=== PATIENT | male | born 1950 | race Caucasian/White ===

== ENCOUNTER 2017-01-05 21:30 | Inpatient (IN) | payer OTHER ==
[~2017-01-05] VITALS: Ht 188 cm; Wt 95.3 kg
[~2017-01-05 21:30] MED LIST: GLIPIZIDE ER2.5 MG PO; IBU600 MG PO; METFORMIN HCL500 MG PO; PROZAC10 MG PO; VASOTEC20 MG PO; XANAX0.5 MG PO
--- NOTE | 2017-01-05 21:50 | ED GI/GU/ABDOMINAL COMPLAINT ---
History of Present Illness General Chief Complaint: Abdominal Pain/Flank Pain Stated Complaint: RT SIDE ABDOMINAL PAIN Source: patient, family, old records Exam Limitations: no limitations Vital Signs & Intake/Output Vital Signs & Intake/Output Vital Signs Date Time Temp Pulse Resp B/P Pulse O2 O2 Flow FiO2 Ox Delivery Rate 01/06 2224 Room Air 01/05 2154 98.9 93 18 150/87 97 Room Air ED Intake and Output 01/06 0000 01/05 1200 Intake Total 1000 Output Total Balance 1000 Intake, IV 1000 Patient 216 lb Weight Allergies Coded Allergies: NO KNOWN ALLERGIES (01/05/17) Reconcile Medications Alprazolam (Xanax) 0.5 MG TABLET 1 TAB PO BID ANXIETY (Reported) Enalapril Maleate (Vasotec) 20 MG TAB 1 TAB PO BID HTN (Reported) FLUOXETINE HCL (Prozac) 10 MG CAPSULE 1 TAB PO D ANXIETY (Reported) Glipizide (Glipizide ER) 2.5 MG TAB.ER.24 1 TAB PO BID NIDDM (Reported) Ibuprofen (Ibu) 600 MG TAB 1 TAB PO TID PRN PAIN Metformin Hydrochloride (Metformin HCl) 500 MG TAB 2 TAB PO BID NIDDM ( Reported) Triage Nurses Notes Reviewed? yes HPI: This morning patient had diffuse crampy abdominal pain but this afternoon it settled into his right lower quadrant. The pain is constant. The pain increases with movement or bumps in the road. There is no nausea or vomiting. There is no radiation of pain. Patient rates the pain as 8 out of 10. There is no obstipation or diarrhea. There is no hematuria. No dysuria. Past History Travel History Traveled to [place] past 21 day No Medical History Any Pertinent Medical History? see below for history Cardiovascular: hypertension Psychiatric: depression Endocrine: diabetes Surgical History Surgical History: non-contributory Psychosocial History What is your primary language Frisian Tobacco Use: Quit >30 days ago ETOH Use: occasional use Illicit Drug Use: denies illicit drug use Family History Hx Contributory? No Review of Systems Review of Systems Constitutional: Reports: no symptoms. EENTM: Reports: no symptoms. Respiratory: Reports: no symptoms. Cardiovascular: Reports: no symptoms. GI: Reports: see HPI, abdominal pain. Genitourinary: Reports: no symptoms. Musculoskeletal: Reports: no symptoms. Skin: Reports: no symptoms. Neurological/Psychological: Reports: no symptoms. Hematologic/Endocrine: Reports: no symptoms. Immunologic/Allergic: Reports: no symptoms. All Other Systems: Reviewed and Negative Physical Exam Physical Exam General Appearance: well developed/nourished, alert, awake Head: atraumatic, normal appearance Eyes: Bilateral: PERRL, EOMI. Ears, Nose, Throat, Mouth: hearing grossly normal, DRY MUCUS MEMBRANES Neck: normal inspection, supple, full range of motion Respiratory: normal breath sounds, chest non-tender, no respiratory distress, lungs clear Cardiovascular: regular rate/rhythm, normal peripheral pulses Gastrointestinal: normal bowel sounds, soft, no organomegaly, RLQ TENDERNESS WITH GUARDING AND REBOUND Back: normal inspection, normal range of motion Extremities: normal range of motion Neurologic/Psych: no motor/sensory deficits, awake, alert, oriented x 3, normal mood/affect Skin: intact, normal color, warm/dry Core Measures ACS in differential dx? Yes ASA ordered for poss ACS? No-ACS ruled out Severe Sepsis Present: No Septic Shock Present: No Progress Differential Diagnosis: AMI, appendicitis, bowel obstruction, colon cancer, cholecystitis, diverticulitis, gastritis, hepatitis, ischemic bowel, inflamm bowel dis, ureterolithiasis Plan of Care: Orders Procedure Date/time Status Place in observation 01/052 Active URINALYSIS 01/06 2140 Active TROPONIN LEVEL 01/06 2140 Complete LIPASE 01/06 2140 Complete COMPREHENSIVE METABOLIC PANEL 01/06 2140 Complete CBC WITHOUT DIFFERENTIAL 01/06 2140 Complete AMYLASE 01/06 2140 Complete EKG 01/05 2131 Active Laboratory Tests 01/05/17 2151: Anion Gap 13, Estimated GFR > 60, BUN/Creatinine Ratio 16.7, Glucose 197 H, Calcium 9.6, Total Bilirubin 1.6 H, AST 32, ALT 68, Alkaline Phosphatase 54, Troponin I < 0.01, Total Protein 7.5, Albumin 4.4, Globulin 3.1, Albumin/ Globulin Ratio 1.4, Amylase 62, Lipase 120, CBC w Diff MAN DIFF ORDERED, RBC 5.21, MCV 89.2, MCH 30.5, RDW 12.9, MPV 7.3 L, Gran % 85.2 H, Lymphocytes % 7.1 L, Monocytes % 7.5, Eosinophils % 0.1, Basophils % 0.1, Absolute Granulocytes 14.7 H, Absolute Lymphocytes 1.2, Absolute Monocytes 1.3 H, Absolute Eosinophils 0, Absolute Basophils 0, Platelet Estimate ADEQUATE, Normocytic RBCs VERIFIED, Normochromic RBCs VERIFIED, PUBS MCHC 34.2 Diagnostic Imaging: Viewed by Me: CT Scan. Discussed w/RAD: CT Scan. Radiology Impression: PATIENT: CAITIE ROJAS PRESENT AGE: 66 PATIENT ACCOUNT NO: [id number] : 48 LOCATION: [facility] ORDERING PHYSICIAN: VALERY OLIVO MD SERVICE DATE: 01/05/17 EXAM TYPE: CAT - CT ABD & PELVIS W IV CONTRAST EXAMINATION: CT ABDOMEN AND PELVIS WITH CONTRAST CLINICAL INFORMATION: Right lower quadrant abdominal pain. Question appendicitis. COMPARISON: No relevant prior imaging available. TECHNIQUE: Multidetector volumetric imaging was performed of the abdomen and pelvis before and after the IV administration of 95 mL of Optiray 320 intravenous contrast. Sagittal and coronal reformatted images were obtained on the technologist's workstation. DLP: 478.57 mGy-cm FINDINGS: LUNG BASES: There is minimal bibasilar subsegmental atelectasis. No pleural or pericardial effusion. LIVER, GALLBLADDER, AND BILIARY TREE: The liver is normal in size, shape, and attenuation. No focal hepatic lesion is present. There is a small calculus layering within the gallbladder neck. The gallbladder is otherwise normal. No intrahepatic or extrahepatic biliary ductal dilatation. PANCREAS: Unremarkable. SPLEEN: Unremarkable. ADRENAL GLANDS: Unremarkable. KIDNEYS AND URETERS: The kidneys are normal in size, shape, and attenuation. No hydronephrosis, hydroureter, or calculi seen. No perinephric stranding. BLADDER: Unremarkable. GASTROINTESTINAL TRACT: There is extensive retroperitoneal inflammation surrounding an abnormal thickened and relatively indistinguishable appendix. There appears be a large appendicolith near the base of the cecum. There is extraluminal air and fluid adjacent to the appendix consistent with perforation. Reactive inflammatory changes are visualized within the adjacent cecum. A few diverticula are visualized within the distal descending and sigmoid colon. The colon is otherwise unremarkable. Small bowel and stomach are normal. ABDOMINAL WALL: No significant hernia is appreciated. LYMPH NODES: There are no pathologically enlarged mesenteric or retroperitoneal lymph nodes. VASCULAR: Scattered atheromatous calcification is visualized within the abdominal aorta and iliac vessels. The inferior vena cava is unremarkable. PELVIC VISCERA: The prostate gland is enlarged with a transverse diameter of 6 cm. No abnormal perirectal or presacral inflammation. OSSEOUS STRUCTURES: There is asymmetric degenerative narrowing of the right hip. No acute fracture. No worrisome lytic or blastic osseous lesions. There are prominent degenerative disc osteophytes causing indentation of the ventral thecal sac at the levels of L2-L3 and L3-L4. IMPRESSION: Perforated acute appendicitis with a small collection containing air and fluid within the right lower quadrant. Extensive retroperitoneal inflammatory changes. DICTATED BY: TEENA GARCIA MD DATE/TIME DICTATED:2330 INSPECTOR FLOOR SUB ASSEMBLY:GINETTE DATE/TIME TRANSCRIBED:01/05/172330 CONFIDENTIAL, DO NOT COPY WITHOUT APPROPRIATE AUTHORIZATION. <Electronically signed in Other Vendor System> SIGNED BY: TEENA GARCIA MD 01/05/17 3133 Initial ED EKG: SINUS RHYTHM WITH POOR r-WAVE PROGRESSION AND FIRST-DEGREE HEART BLOCK, LEFT ATRIAL ml iv, [address] ELEVATION IN v1 AND v2. nO OLD ekg TO COMPARE TO HOWEVER, IT APPEARS WAS CONTACTED AND HE PULLED UP ONE FROM THE OFFICE AND IT IS UNCHANGED. Prior EKG: unchanged Departure Departure Disposition: STILL A PATIENT Condition: Stable Clinical Impression Primary Impression: Perforated appendicitis Referrals: DAVINA العلي MD (PCP/Family) Departure Forms: Customer Survey General Discharge Information Observation Note Spoke With: JAROCHO DESAI MD Physician Advisor Notified: GEOVANI DUMONT,VALERY Cardneas. Place Patient In: Non-ED OBS Care Area Rationale for Observation: My rational for observation is as follows [iv abx and surgical intervention].
--- NOTE | 2017-01-05 21:54 | NUR ---
PT TO TRIAGE C/O 07/19 RLQ PAIN THAT STARTED YESTERDAY. PT STATED HE HAD NAUSEA AND VOMITING YESTERDAY AND IS EXPERIENCING CONSTIPATION.
--- NOTE | 2017-01-05 21:55 | NUR ---
IV EST #20 IN RIGHT FOREARM
--- NOTE | 2017-01-05 21:55 | NUR ---
SST LAV BLUE PINK AND CHEN SENT TO LAB. DRAWN BY ERNESTO
[2017-01-05 22:00] LABS: ABSOLUTE BASOPHIL COUNT 0 /CUMM (0.0-0.2); ABSOLUTE EOSINOPHIL COUNT 0 /CUMM (0.0-0.7); ABSOLUTE GRANULOCYTE CT 14.7 /CUMM (1.4-6.5); ABSOLUTE LYMPH COUNT 1.2 /CUMM (1.2-3.4); ABSOLUTE MONOCYTE COUNT 1.3 /CUMM (0.10-0.60); BASOPHIL % 0.1 % (0.0-2.0); EOSINOPHIL % 0.1 % (0-5); GRANULOCYTE % 85.2 % (42.2-75.2); HEMATOCRIT 46.5 % (42-52); MEAN CORPUSCULAR HGB 30.5 PG (27.0-31.0); MEAN CORPUSCULAR HGB CONC 34.2 G/DL (33.0-37.0); MEAN CORPUSCULAR VOLUME 89.2 FL (80.0-94.0); MEAN PLATELET VOLUME 7.3 FL (7.4-10.4); PLATELET COUNT 238 /CUMM (130-400); RBC DISTRIBUTION WIDTH 12.9 % (11.5-14.5); RED BLOOD CELL CT 5.21 /CUMM (4.70-6.10); WHITE BLOOD CELL COUNT 17.2 /CUMM (4.8-10.8)
--- NOTE | 2017-01-05 22:03 | NUR ---
PT MEDICATED WITH NS INFUSING PER EMAR
--- NOTE | 2017-01-05 22:22 | NUR ---
PT REFUSED 4MG MORPHINE, PT MEDICATED WITH 30MG TORADOL PER EMAR
--- NOTE | 2017-01-05 22:33 | NUR ---
PT TO CAT SCAN VIA STRETCHER
--- NOTE | 2017-01-05 23:42 | CT SCAN REPORT ---
EXAMINATION: CT ABDOMEN AND PELVIS WITH CONTRAST CLINICAL INFORMATION: Right lower quadrant abdominal pain. Question appendicitis. COMPARISON: No relevant prior imaging available. TECHNIQUE: Multidetector volumetric imaging was performed of the abdomen and pelvis before and after the IV administration of 95 mL of Optiray 320 intravenous contrast. Sagittal and coronal reformatted images were obtained on the technologist's workstation. DLP: 478.57 mGy-cm FINDINGS: LUNG BASES: There is minimal bibasilar subsegmental atelectasis. No pleural or pericardial effusion. LIVER, GALLBLADDER, AND BILIARY TREE: The liver is normal in size, shape, and attenuation. No focal hepatic lesion is present. There is a small calculus layering within the gallbladder neck. The gallbladder is otherwise normal. No intrahepatic or extrahepatic biliary ductal dilatation. PANCREAS: Unremarkable. SPLEEN: Unremarkable. ADRENAL GLANDS: Unremarkable. KIDNEYS AND URETERS: The kidneys are normal in size, shape, and attenuation. No hydronephrosis, hydroureter, or calculi seen. No perinephric stranding. BLADDER: Unremarkable. GASTROINTESTINAL TRACT: There is extensive retroperitoneal inflammation surrounding an abnormal thickened and relatively indistinguishable appendix. There appears be a large appendicolith near the base of the cecum. There is extraluminal air and fluid adjacent to the appendix consistent with perforation. Reactive inflammatory changes are visualized within the adjacent cecum. A few diverticula are visualized within the distal descending and sigmoid colon. The colon is otherwise unremarkable. Small bowel and stomach are normal. ABDOMINAL WALL: No significant hernia is appreciated. LYMPH NODES: There are no pathologically enlarged mesenteric or retroperitoneal lymph nodes. VASCULAR: Scattered atheromatous calcification is visualized within the abdominal aorta and iliac vessels. The inferior vena cava is unremarkable. PELVIC VISCERA: The prostate gland is enlarged with a transverse diameter of 6 cm. No abnormal perirectal or presacral inflammation. OSSEOUS STRUCTURES: There is asymmetric degenerative narrowing of the right hip. No acute fracture. No worrisome lytic or blastic osseous lesions. There are prominent degenerative disc osteophytes causing indentation of the ventral thecal sac at the levels of L2-L3 and L3-L4. IMPRESSION: Perforated acute appendicitis with a small collection containing air and fluid within the right lower quadrant. Extensive retroperitoneal inflammatory changes.
--- NOTE | 2017-01-05 23:48 | NUR ---
PT MEDICATED WITH 3G UNASYN PER EMAR
--- NOTE | 2017-01-06 00:24 | NUR ---
PT PROVIDED WITH BLANKETS, REPOSITIONED FOR COMFORT, LIGHTS DIMMED, CALL BRUSH WITHIN REACH, WILL CONTINUE TO MONITOR.
--- NOTE | 2017-01-06 00:44 | NUR ---
SURGICAL PA AT BEDSIDE FOR PT EVALUATION
--- NOTE | 2017-01-06 01:22 | NUR ---
PT TEMPERATURE 102.0, SURGICAL PA MADE AWARE
--- NOTE | 2017-01-06 01:48 | NUR ---
PT MEDICATED WITH OFFIRMEV 1G PER EMAR FOR FEVER
--- NOTE | 2017-01-06 02:05 | NUR ---
URINE TRIO SENT TO LAB. BG = 195
[2017-01-06] MEDS ORDERED: TOUJEO SOL300 UNIT/1 SC (02:08)
[2017-01-06] MEDS ORDERED: PIOGLITAZONE HC30 M1 PO (02:08)
[2017-01-06] MEDS ORDERED: FENOFIBRATE160 M1 PO (02:09)
--- NOTE | 2017-01-06 02:09 | NUR ---
URINE SAMPLE SENT TO LAB
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
--- NOTE | 2017-01-06 02:34 | NUR ---
PT CLOTHES AND JEWLERY PLACED IN BELONGINGS BAGS. PT SCRUBED WITH OR PREP.
--- NOTE | 2017-01-06 02:37 | Admission Core Measures ---
Admission Lab Results I reviewed the following labs: Laboratory Tests 01/06 01/05 020 2151 Chemistry Sodium (137 - 145 mmol/L) 136 L Potassium (3.5 - 5.1 mmol/L) 3.8 Chloride (98 - 107 mmol/L) 98 Carbon Dioxide (22 - 30 mmol/L) 25 Anion Gap (5 - 16) 13 BUN (9 - 20 mg/dL) 15 Creatinine (0.7 - 1.2 mg/dL) 0.9 Estimated GFR (>60 ml/min) > 60 BUN/Creatinine Ratio (7 - 25 %) 16.7 Glucose (65 - 99 mg/dL) 197 H Calcium (8.4 - 10.2 mg/dL) 9.6 Total Bilirubin (0.2 - 1.3 mg/dL) 1.6 H AST (17 - 59 U/L) 32 ALT (21 - 72 U/L) 68 Alkaline Phosphatase (< 127 U/L) 54 Troponin I (<0.11 ng/ml) < 0.01 Total Protein (6.3 - 8.2 g/dL) 7.5 Albumin (3.5 - 5.0 g/dL) 4.4 Globulin (1.9 - 4.2 gm/dL) 3.1 Albumin/Globulin Ratio (1.1 - 2.2 %) 1.4 Amylase (30 - 110 U/L) 62 Lipase (23 - 300 U/L) 120 Hematology CBC w Diff MAN DIFF ORDERED WBC (4.8 - 10.8 /CUMM) 17.2 H RBC (4.70 - 6.10 /CUMM) 5.21 Hgb (14.0 - 18.0 G/DL) 15.9 Hct (42 - 52 %) 46.5 MCV (80.0 - 94.0 FL) 89.2 MCH (27.0 - 31.0 PG) 30.5 RDW (11.5 - 14.5 %) 12.9 Plt Count (130 - 400 /CUMM) 238 MPV (7.4 - 10.4 FL) 7.3 L Gran % (42.2 - 75.2 %) 85.2 H Lymphocytes % (20.5 - 51.1 %) 7.1 L Monocytes % (1.7 - 9.3 %) 7.5 Eosinophils % (0 - 5 %) 0.1 Basophils % (0.0 - 2.0 %) 0.1 Absolute Granulocytes (1.4 - 6.5 /CUMM) 14.7 H Absolute Lymphocytes (1.2 - 3.4 /CUMM) 1.2 Absolute Monocytes (0.10 - 0.60 /CUMM) 1.3 H Absolute Eosinophils (0.0 - 0.7 /CUMM) 0 Absolute Basophils (0.0 - 0.2 /CUMM) 0 Platelet Estimate (ADEQUATE) ADEQUATE Normocytic RBCs VERIFIED Normochromic RBCs VERIFIED PUBS MCHC (33.0 - 37.0 G/DL) 34.2 Urines Urine Color (YEL,AMB,STR) YEL Urine Clarity (CLEAR) CLEAR Urine pH (5.0 - 8.0) 5.5 Ur Specific [place] (1.001 - 1.035) 1.020 Urine Protein (NEG,<30 MG/DL) 100 H Urine Ketones (NEG) NEG Urine Nitrite (NEG) NEG Urine Bilirubin (NEG) NEG Urine Urobilinogen (0.1 - 1.0 EU/dl) 1.0 Ur Leukocyte Esterase (NEG) NEG Ur Microscopic SEDIMENT EXAMINED Urine RBC (0 - 5 /HPF) RARE Urine Bacteria (NEG/NONE) RARE H Hyaline Casts (0/LPF) 3-5 H Granular Casts (NONE /LPF) RARE H Urine Hemoglobin (NEG) SMALL H Urine Glucose (N MG/DL) NEG Acute Coronary Syndrome Inclusion Criteria ACS Diagnosis No Inpatient Core Measures LDL Reminder: If No, please order W/I first 24hr of stay Congestive Heart Failure Inclusion Criteria CHF Diagnosis No Cerebrovascular accident Inclusion Criteria CVA/TIA Diagnosis No Inpatient Core Measures Bedside Swallow Eval Reminder: If BSE failed, place ST order Antithrombotic Reminder: Order Antithrombotic Medication by end of day 2 Antithrombotic Reminder: Document Reason Antithrombotic Not ordered by end of day 2 AFIB/Flutter Reminder: If Present, add to problem list AFIB/Flutter Reminder: Order Anticoag Medication for pts with AFIB/Flutter Atherosclerosis Reminder: If Present, add to problem list LDL Reminder: If No, please order W/I first 24hr of stay PT Order Reminder: If No, please order Venous thromboembolism Inpatient Core Measures VTE Risk Factors: Acute medical illness, Age > 40, Surgery [facility] prophylaxis d/t No contraindications No VTE Pharm Prophylaxis d/t No contraindications Inclusion Criteria - Per Current guidelines, there needs to be overlap - treatment for the first 5 days of Warfarin therapy. - Parenteral Anticoagulation (IV or SC) needs to be - given along with Warfarin therapy. VTE Diagnosis No VTE Type NONE VTE Confirmed by (Test) NONE Problem List As ranked by this Provider includes Assessment & Plan 1. Perforated appendicitis HOME MEDS Home Med List Enalapril Maleate (Vasotec) 20 MG TAB 1 TAB PO BID HTN (Reported) Fenofibrate 160 MG TABLET 1 TAB PO DAILY TRIGLYCERIDES (Reported) FLUOXETINE HCL (Prozac) 10 MG CAPSULE 1 TAB PO D ANXIETY (Reported) Insulin Glargine,Hum.rec.anlog (Christina Callahan) 300 UNIT/ML (1.5 ML) INSULN.PEN 80 UNIT SC BID DIABETES (Reported) Metformin Hydrochloride (Metformin HCl) 500 MG TAB 2 TAB PO BID NIDDM ( Reported) Pioglitazone HCl 30 MG TABLET 1 TAB PO DAILY DIABETES (Reported)
--- NOTE | 2017-01-06 02:46 | NUR ---
2ND LITER OF NS INFUSING PER EMAR
--- NOTE | 2017-01-06 02:50 | NUR ---
BLOOD DRAWN AND SENT TO LAB BLUE
[2017-01-06 03:04] LABS: PT 15.6 SEC (9.4-12.5); PTT 29 SEC (25-37)
--- NOTE | 2017-01-06 05:19 | Operative Report ---
Operative/Inv Procedure Report Surgery Date: 01/06/17 Name of Procedure: Laparoscopic appendectomy Pre-Operative Diagnosis: Appendicitis Peritonitis Post-Operative Diagnosis: Same Estimated Blood Loss: scant Surgeon/Polymerization Kettle Operator: LLOYD DUMONT,JAROCHO Cardenas/Milly MELGOZA Anesthesia: general endotracheal tube Specimens: Appendix Microbiology: Peritoneal fluid Operative/Procedure Note Note: After consent he is brought to the operating room and laid supine. Gen. anesthesia was obtained his abdomen was prepped and draped. Skin above the umbilicus was after local anesthesia a curvilinear incision made sharply. We dissected through subcutaneous tissues tissues bluntly and identified the fascia. It was grasped with [place]'s and a fasciotomy created sharply. The peritoneum was entered sharply and a blunt Banks port was placed. Pneumoperitoneum was achieved. 2, 5 mm ports were placed in the suprapubic region and left lower quadrant, after local anesthesia was instilled and under direct vision the camera. He's placed in Trendelenburg and rotated towards the left. The abdomen was explored. There is no inflammatory process of the right lower quadrant. The appendix was not visualized. We peeled away adhesions of the colon to the lateral sidewall. This resulted in the encounter of gross feculent purulence. Specimen was taken for culture. The appendix was retroperitoneal and difficult to dissect. It was gangrenous throughout its course. Lysed the cecum up to the level of the mid right colon. There was some it attachments to the terminal ileum on the pelvic brim which was also taken down with cautery. This allowed better visualization of the oh appendix. It was circumferentially dissected with blunt dissection. The base was dissected free and a stapler placed across the 2 divided. This was an Endo JERRY Nunez load. The mesentery the appendix was taken with a reload. Appendix placed in Endo Catch bag and cinched up. The right lower quadrant and pelvis within irrigated normal saline. Hemostasis was adequate. Ports then removed and appendix delivered and passed off the field. The fascia was closed 0 Vicryl suture. Skin incisions closed with 4-0 Vicryl. Steri-Strips and sterile dressing applied. Sponge and needle counts are correct CC: SEVERIANO DUMONT,DAVINA
[2017-01-06 06:45] LABS: ABSOLUTE BASOPHIL COUNT 0 /CUMM (0.0-0.2); ABSOLUTE EOSINOPHIL COUNT 0 /CUMM (0.0-0.7); ABSOLUTE GRANULOCYTE CT 11.6 /CUMM (1.4-6.5); ABSOLUTE LYMPH COUNT 0.6 /CUMM (1.2-3.4); ABSOLUTE MONOCYTE COUNT 1.4 /CUMM (0.10-0.60); BASOPHIL % 0 % (0.0-2.0); EOSINOPHIL % 0.1 % (0-5); GRANULOCYTE % 85.4 % (42.2-75.2); MEAN CORPUSCULAR HGB 30.6 PG (27.0-31.0); MEAN CORPUSCULAR HGB CONC 34.2 G/DL (33.0-37.0); MEAN CORPUSCULAR VOLUME 89.4 FL (80.0-94.0); MEAN PLATELET VOLUME 7.4 FL (7.4-10.4); PLATELET COUNT 203 /CUMM (130-400); RBC DISTRIBUTION WIDTH 12.8 % (11.5-14.5); RED BLOOD CELL CT 4.42 /CUMM (4.70-6.10); WHITE BLOOD CELL COUNT 13.6 /CUMM (4.8-10.8)
[2017-01-06 06:50] LABS: HEMATOCRIT 39.5 % (42-52)
[2017-01-06 08:00] VITALS: BP 138/78
[2017-01-06 10:01] VITALS: BP 138/80
--- NOTE | 2017-01-06 11:46 | PN- General Surgery ---
Subjective Subjective: Post op check: Tolerated procedure, tolerating clear liquids so far. Denies chest pain, shortness of breath and difficulty breathing. Denies nausea and vomitting. Has passed flatus Objective Vital Signs and I&Os Vital Signs Date Time Temp Pulse Resp B/P Pulse O2 O2 Flow FiO2 Ox Delivery Rate 01/06 1001 97.2 97 18 138/80 94 Room Air 01/06 0800 98.0 98 18 138/78 94 Room Air 01/06 0210 102.4 108 18 130/59 95 Room Air 01/06 0148 102.0 01/06 0122 102.0 98 18 95 Room Air 01/05 2224 Room Air 01/05 2154 98.9 93 18 150/87 97 Room Air Intake & Output 01/06 1600 01/06 0800 01/06 0000 01/05 1600 01/05 0800 01/05 0000 Intake Total 1000 Output Total Balance 1000 Intake, IV 1000 Patient 210 lb 216 lb Weight Physical Exam: General: Alert and oriented x3 no acute distress Cardiac: RRR, s1s2 Pulm: Normal respiratory effort, cta bilaterally Abdomen: Softly distended, incisional tenderness appreciated, umbilical dressing with small amout of sanquinous drainage, other incisions dry and intact Extremities: No peripheral edema, skin warm well perfused. Motor intact. Sensory intact. Bilateral calves soft and non-tender Assessment/Plan Assessment/Plan This is a 66 year old male, POD 0, s/p laparoscopic appendectomy for perforation -Continue unasyn 3g q6 -Follow up cultures -Clear liquid diet for now -Continue iv fluids today -Sub q heparin for dvt ppx -ALPS -Will d/w dr. ram Core Measures/Miscellaneous Venous Thromboembolism VTE Risk Factors: Age > 40, Surgery VTE Contraindications: No Contraindications VTE Diagnosis: No VTE Type: NONE VTE Confirmed by (Test): NONE Beta Wilfredo Is Beta Wilfredo a Home Med? No Antibiotics Is Patient on Antibiotics? Yes If Yes: infection
[2017-01-06 12:50] VITALS: BP 152/80
[2017-01-06 14:14] VITALS: BP 152/82
[2017-01-06 18:01] VITALS: BP 132/68
--- NOTE | 2017-01-06 21:06 | NUR ---
ALERT AND ORIENTED X 3. VITAL SIGNS STABLE. DENIES CHEST PAIN. + PULSES STEADY GAIT. DSG C/D/I. MEDICATION GIVEN FOR DISCOMFORT WILL CONTINUE TO MONITOR
[2017-01-06 22:07] VITALS: BP 122/74
[2017-01-07 06:24] VITALS: BP 120/76
[2017-01-07 06:25] VITALS: BP 120/76; BP 138/72
--- NOTE | 2017-01-07 07:21 | PN- General Surgery ---
See Addendum Subjective Subjective: POD #1 s/p laparoscopic appendectomy for perforated appendicitis. Complains of pain, but relieved with tylenol and toradol. Tolerating clears without nausea or vomiting. No CP/SOB, F/C. Ambulating and voiding spontaneously. Objective Vital Signs and I&Os Vital Signs Date Time Temp Pulse Resp B/P Pulse O2 O2 Flow FiO2 Ox Delivery Rate 01/07 0625 98.3 80 20 120/76 94 Room Air 01/07 0624 98.3 80 20 120/76 94 Room Air 01/06 2207 98.4 88 19 122/74 95 01/06 1801 98.5 95 14 132/68 95 Room Air 01/06 1414 98.9 100 18 152/82 94 Room Air 01/06 1250 98.3 93 18 152/80 95 Room Air 01/06 1001 97.2 97 18 138/80 94 Room Air 01/06 0800 98.0 98 18 138/78 94 Room Air Intake & Output 01/07 0800 01/07 0000 01/06 1600 01/06 0800 01/06 0000 01/05 1600 Intake Total 1500 1100 1675 1000 Output Total 600 650 Balance 394 511 7794 1000 Intake, IV 1200 893 640 6725 Intake, Oral 300 725 800 Output, Urine 600 650 Patient 210 lb 216 lb Weight Physical Exam: Gen: AAOx3 in NAD Cor: S1+S2+ Lungs: CTA kylah Abd: softly distended, not tympanitic, tender over periumbilical incision, scant BS auscultated. Bandaids C/D/I. Ext: no edema or calf tenderness to kylah lower extremities. Current Medications: Current Medications Sig/Luis Armando Start time Last Medication Dose Route Stop Time Status Admin Acetaminophen 1,000 MG Q6P PRN 01/06 1700 AC N/A 1 UNIT IV Acetaminophen 650 MG Q6P PRN 01/06 0530 AC PO Ampicillin Sodium/ 3,000 MG Q6 01/06 0600 AC 01/07 Sulbactam Sodium IV 0537 Sodium Chloride 100 ML Fenofibrate 145 MG DAILY 01/06 1000 AC 01/06 PO 1323 Fluoxetine HCl 10 MG DAILY 01/06 1000 AC 01/06 PO 1323 Heparin Sodium 5,000 UNIT Q8 01/06 0600 AC 01/07 (Porcine) SC 0537 Insulin Human Regular 0 TIDAC/HS 01/06 1200 AC 01/06 SC 1726 Ketorolac 30 MG .STK-MED ONE 01/06 1713 DC Tromethamine IM 01/06 1714 Ketorolac 15 MG Q8P PRN 01/06 1700 AC 01/06 Tromethamine IV 1729 Lisinopril 40 MG DAILY 01/06 1000 AC 01/06 PO 1322 Morphine Sulfate 2 MG Q3P PRN 01/06 0530 AC IV Morphine Sulfate 4 MG Q3P PRN 01/06 0530 AC IV Ondansetron HCl 4 MG Q6P PRN 01/06 0530 AC IV Potassium Chloride 20 MEQ .Q8H 01/06 0530 AC 01/07 Dextrose/Sodium 1,000 ML IV 0537 Chloride Results Last 48 Hours of Labs: Laboratory Tests 01/06 01/06 0600 0249 Chemistry Sodium (137 - 145 mmol/L) 136 L Potassium (3.5 - 5.1 mmol/L) 3.6 Chloride (98 - 107 mmol/L) 103 Carbon Dioxide (22 - 30 mmol/L) 23 Anion Gap (5 - 16) 9 BUN (9 - 20 mg/dL) 19 Creatinine (0.7 - 1.2 mg/dL) 1.0 Estimated GFR (>60 ml/min) > 60 BUN/Creatinine Ratio (7 - 25 %) 19.0 Coagulation PT (9.4 - 12.5 SEC) 15.6 H INR (0.90 - 1.17) 1.49 H APTT (25 - 37 SEC) 29 Hematology CBC w Diff MAN DIFF ORDERED WBC (4.8 - 10.8 /CUMM) 13.6 H RBC (4.70 - 6.10 /CUMM) 4.42 L Hgb (14.0 - 18.0 G/DL) 13.5 L Hct (42 - 52 %) 39.5 L MCV (80.0 - 94.0 FL) 89.4 MCH (27.0 - 31.0 PG) 30.6 RDW (11.5 - 14.5 %) 12.8 Plt Count (130 - 400 /CUMM) 203 MPV (7.4 - 10.4 FL) 7.4 Gran % (42.2 - 75.2 %) 85.4 H Lymphocytes % (20.5 - 51.1 %) 4.5 L Monocytes % (1.7 - 9.3 %) 10.0 H Eosinophils % (0 - 5 %) 0.1 Basophils % (0.0 - 2.0 %) 0 L Absolute Granulocytes (1.4 - 6.5 /CUMM) 11.6 H Segmented Neutrophils (42.2 - 75.2 %) 83 H Band Neutrophils (0.0 - 5.0 %) 5 Absolute Lymphocytes (1.2 - 3.4 /CUMM) 0.6 L Lymphocytes (20.5 - 51.1 %) 4 L Monocytes (1.7 - 9.3 %) 8 Absolute Monocytes (0.10 - 0.60 /CUMM) 1.4 H Absolute Eosinophils (0.0 - 0.7 /CUMM) 0 Absolute Basophils (0.0 - 0.2 /CUMM) 0 Platelet Estimate (ADEQUATE) ADEQUATE Polychromasia 1+ Basophilic Stippling SLIGHT Ovalocytes FEW PUBS MCHC (33.0 - 37.0 G/DL) 34.2 Other Body Source Fld Total RBCs Counted (%) 100 01/06 01/05 0208 2151 Chemistry Sodium (137 - 145 mmol/L) 136 L Potassium (3.5 - 5.1 mmol/L) 3.8 Chloride (98 - 107 mmol/L) 98 Carbon Dioxide (22 - 30 mmol/L) 25 Anion Gap (5 - 16) 13 BUN (9 - 20 mg/dL) 15 Creatinine (0.7 - 1.2 mg/dL) 0.9 Estimated GFR (>60 ml/min) > 60 BUN/Creatinine Ratio (7 - 25 %) 16.7 Glucose (65 - 99 mg/dL) 197 H Calcium (8.4 - 10.2 mg/dL) 9.6 Total Bilirubin (0.2 - 1.3 mg/dL) 1.6 H AST (17 - 59 U/L) 32 ALT (21 - 72 U/L) 68 Alkaline Phosphatase (< 127 U/L) 54 Troponin I (<0.11 ng/ml) < 0.01 Total Protein (6.3 - 8.2 g/dL) 7.5 Albumin (3.5 - 5.0 g/dL) 4.4 Globulin (1.9 - 4.2 gm/dL) 3.1 Albumin/Globulin Ratio (1.1 - 2.2 %) 1.4 Amylase (30 - 110 U/L) 62 Lipase (23 - 300 U/L) 120 Hematology CBC w Diff MAN DIFF ORDERED WBC (4.8 - 10.8 /CUMM) 17.2 H RBC (4.70 - 6.10 /CUMM) 5.21 Hgb (14.0 - 18.0 G/DL) 15.9 Hct (42 - 52 %) 46.5 MCV (80.0 - 94.0 FL) 89.2 MCH (27.0 - 31.0 PG) 30.5 RDW (11.5 - 14.5 %) 12.9 Plt Count (130 - 400 /CUMM) 238 MPV (7.4 - 10.4 FL) 7.3 L Gran % (42.2 - 75.2 %) 85.2 H Lymphocytes % (20.5 - 51.1 %) 7.1 L Monocytes % (1.7 - 9.3 %) 7.5 Eosinophils % (0 - 5 %) 0.1 Basophils % (0.0 - 2.0 %) 0.1 Absolute Granulocytes (1.4 - 6.5 /CUMM) 14.7 H Absolute Lymphocytes (1.2 - 3.4 /CUMM) 1.2 Absolute Monocytes (0.10 - 0.60 /CUMM) 1.3 H Absolute Eosinophils (0.0 - 0.7 /CUMM) 0 Absolute Basophils (0.0 - 0.2 /CUMM) 0 Platelet Estimate (ADEQUATE) ADEQUATE Normocytic RBCs VERIFIED Normochromic RBCs VERIFIED PUBS MCHC (33.0 - 37.0 G/DL) 34.2 Urines Urine Color (YEL,AMB,STR) YEL Urine Clarity (CLEAR) CLEAR Urine pH (5.0 - 8.0) 5.5 Ur Specific [place] (1.001 - 1.035) 1.020 Urine Protein (NEG,<30 MG/DL) 100 H Urine Ketones (NEG) NEG Urine Nitrite (NEG) NEG Urine Bilirubin (NEG) NEG Urine Urobilinogen (0.1 - 1.0 EU/dl) 1.0 Ur Leukocyte Esterase (NEG) NEG Ur Microscopic SEDIMENT EXAMINED Urine RBC (0 - 5 /HPF) RARE Urine Bacteria (NEG/NONE) RARE H Hyaline Casts (0/LPF) 3-5 H Granular Casts (NONE /LPF) RARE H Urine Hemoglobin (NEG) SMALL H Urine Glucose (N MG/DL) NEG Assessment/Plan Assessment/Plan POD #1 s/p lap appy for perforated appendicitis; AVSS. Plan: Continue clears. ? advance later today once passing flatus. OOB and ambulating. Encouraged use of incentive spirometer. Will continue Unasyn. Core Measures/Miscellaneous Venous Thromboembolism VTE Risk Factors: Age > 40, Surgery VTE Contraindications: No Contraindications VTE Diagnosis: No VTE Type: NONE VTE Confirmed by (Test): NONE Beta Wilfredo Is Beta Wilfredo a Home Med? No Antibiotics Is Patient on Antibiotics? Yes If Yes: infection
[2017-01-07 08:41] LABS: ABSOLUTE BASOPHIL COUNT 0 /CUMM (0.0-0.2); ABSOLUTE EOSINOPHIL COUNT 0 /CUMM (0.0-0.7); ABSOLUTE GRANULOCYTE CT 7.8 /CUMM (1.4-6.5); ABSOLUTE LYMPH COUNT 1.3 /CUMM (1.2-3.4); ABSOLUTE MONOCYTE COUNT 0.7 /CUMM (0.10-0.60); BASOPHIL % 0.4 % (0.0-2.0); EOSINOPHIL % 0.3 % (0-5); GRANULOCYTE % 79.7 % (42.2-75.2); HEMATOCRIT 36.2 % (42-52); MEAN CORPUSCULAR HGB 30.8 PG (27.0-31.0); MEAN CORPUSCULAR HGB CONC 34.1 G/DL (33.0-37.0); MEAN CORPUSCULAR VOLUME 90.4 FL (80.0-94.0); MEAN PLATELET VOLUME 7.7 FL (7.4-10.4); PLATELET COUNT 173 /CUMM (130-400); RBC DISTRIBUTION WIDTH 12.8 % (11.5-14.5); RED BLOOD CELL CT 4.01 /CUMM (4.70-6.10); WHITE BLOOD CELL COUNT 9.8 /CUMM (4.8-10.8)
[2017-01-07 13:49] VITALS: BP 154/84
[2017-01-07 22:52] VITALS: BP 130/70
[2017-01-08 06:32] VITALS: BP 136/84
--- NOTE | 2017-01-08 10:52 | PN- General Surgery ---
Subjective Subjective: Patient tolerating clears. No complaints of nausea and vomitting. Pain under control. Denies chest pain, shortness of breath and difficutly braething. Objective Vital Signs and I&Os Vital Signs Date Time Temp Pulse Resp B/P Pulse O2 O2 Flow FiO2 Ox Delivery Rate 01/08 0912 86 136/84 01/08 0632 98.8 86 20 136/84 94 01/07 2252 99.5 86 20 130/70 94 Room Air 01/07 1349 98.2 91 20 154/84 95 Room Air Intake & Output 01/08 1600 01/08 0800 01/08 0000 01/07 1600 01/07 0800 01/07 0000 Intake Total 547 559 4576 1500 1100 Output Total 450 450 600 650 Balance 115 462 3893 900 450 Intake, IV 100 366 036 4301 375 Intake, Oral 480 480 820 300 725 Number 2 Bowel Movements Output, Urine 450 450 600 650 Patient 210 lb Weight Physical Exam: General: Alert and oriented x3, no acute distress Cardiac: RRR, s1s2 Pulm: CTA bilaterally Abdomen: Soft, non-tender, non-distended Extremtiies: Moves all extremities, distal sensation intact. Motor intact, skin well perfused, no peripheral edema. Bilateral calves soft and non-tender Assessment/Plan Assessment/Plan This is a 66 year old s/p lap appy for perforation, culture and sensitivity pending -Advance diet to regular -OOB as desired -Continue unasyn -D/C to home on po abx when sensitivities are back -D/W Dr. Solomon Core Measures/Miscellaneous Venous Thromboembolism VTE Risk Factors: Age > 40, Surgery VTE Contraindications: No Contraindications VTE Diagnosis: No VTE Type: NONE VTE Confirmed by (Test): NONE Beta Wilfredo Is Beta Wilfredo a Home Med? No Antibiotics Is Patient on Antibiotics? Yes If Yes: infection
--- NOTE | 2017-01-08 11:04 | Patient Discharge Instructions ---
Discharge Instructions General Discharge Information You were seen/treated for: perforated appendix, abdominal pain You had these procedures: laparoscopic appendectomy Watch for these problems: increasing abdominal pain, nausea, vomitting, diarrhea. Fever >101.5 Do not soak the wound: Yes No bath, but you may shower: Yes Other wound care: keep incisions clean and dry Diet Continue normal diet: Yes Recommended Diet: Diabetic Additional DIET Information: advance as tolerated Activity Full Activity/No Limits: No Activity Self Limited: Yes Pounds, do NOT lift more than: 5 Acute Coronary Syndrome Inclusion Criteria At DC or during hospital stay patient has or had the following: ACS DIAGNOSIS No Discharge Core Measures Meds if any: Prescribed or Continued at Discharge Meds if any: NOT Prescribed or Continued at Discharge Congestive Heart Failure Inclusion Criteria At DC or during hospital stay patient has or had the following: CHF DIAGNOSIS No Discharge Core Measures Meds if any: Prescribed or Continued at Discharge Meds if any: NOT Prescribed or Continued at Discharge Cerebrovascular accident Inclusion Criteria At DC or during hospital stay patient has or had the following: CVA/TIA Diagnosis No Discharge Core Measures Meds if any: Prescribed or Continued at Discharge Meds if any: NOT Prescribed or Continued at Discharge Venous thromboembolism Inclusion Criteria VTE Diagnosis No VTE Type NONE VTE Confirmed by (Test) NONE Discharge Core Measures - Per Current guidelines, there needs to be overlap - treatment for the first 5 days of Warfarin therapy. - If discharged on Warfarin prior to 5 days of - overlap therapy, the patient will need to be - assessed for post discharge needs including - *Post discharge parental anticoagulation - *Warfarin and/or parental anticoagulation education - *Follow up date to check INR post discharge At least 5 days overlap therapy as Inpatient No Meds if any: Prescribed or Continued at Discharge Note: Overlap Therapy is Warfarin and Anticoagulant Meds if any: NOT Prescribed or Continued at Discharge
[2017-01-08] MEDS ORDERED: AUGMENTIN 875-1 EACH PO (11:44)
[2017-01-08 14:40] VITALS: BP 142/84
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
== END 2017-01-08 16:00 | DRG 340 ==
LOC: ENRESERVTM → ENRESERVDT → ERH 21:30 → ERHI 23:52 → 2NB 23:52 → ERHI 23:52 → ENPENDDIS 01-06 06:20 → 2NB 01-06 06:20
PROVIDERS: Emergency Medicine; Nurse Practitioner; Physician Assistant Surgical; ADMIT Surgery
PROC: 0DTJ4ZZ Resection of Appendix, Percutaneous Endoscopic Approach (ICD-10-PCS; principal; 2017-01-06)
DX: K35.3 Acute appendicitis with localized peritonitis (principal); I10 Essential (primary) hypertension; F41.8 Other specified anxiety disorders; E78.5 Hyperlipidemia, unspecified; E11.9 Type 2 diabetes mellitus without complications; Z79.4 Long term (current) use of insulin; E78.1 Pure hyperglyceridemia
CPT/HCPCS: 2NBP; 6040; 87070; 87075; 36415; 74177; 81001; 82436; 87147; 88304; 93005; 93010; 96361; 96374; 96375; G0378; J0131; J1100; J1644; J1815; J1885; J2405